=== PATIENT | male | born 1990 | race Caucasian/White ===

== ENCOUNTER 2019-04-10 08:45 | Emergency (ER) | payer SELFPAY ==
--- NOTE | 2019-04-10 09:03 | UC ---
Elbow Pain - HPI Summary HPI Summary: CHIEF COMPLAINT and HPI: This is a healthy 28-year-old male who fell yesterday on his left elbow on ice. Since then he has developed moderate pain in the left elbow, mostly near the olecranon and radial head and restricted movement due to pain. Pain is nonradiating. VITAL SIGNS & SaO2 REVIEWED. Within normal limits unless noted here. 161/86. NURSES NOTE REVIEWED."pt fell yesterday at work, and landed on his left elbow, no pain in the wrist, or hand but some in the forearm. no numbness or tingling." - History of Current Complaint Chief Complaint: UCUpperExtremity Stated Complaint: ELBOW INJURY Time Seen by Provider: 04/10/19 09:02 Pain Intensity: 7 - Allergies/Home Medications Allergies/Adverse Reactions: Allergies Allergy/AdvReac Type Severity Reaction Status Date / Time No Known Allergies Allergy Verified 04/10/19 09:00 Home Medications: Home Medications Acetaminophen [Pain Relief Extra Strength] 1,000 mg PO ONCE PRN 04/10/19 [ History Confirmed 04/10/19] PMH/Surg Hx/FS Hx/Imm Hx - Additional Past Medical History Additional PMH: PAST MEDICAL HISTORY- no significant past medical history. Patient has had variousorthopedic injuries. CHRONIC and RECURRENT HEALTH PROBLEM LIST REVIEWED. Information relevant to present complaint: noncontributory. VISIT HISTORY REVIEWED: noncontributory to present complaint. MEDICATIONS & ALLERGIES REVIEWED.no allergies. HYPERTENSION STATUS:the patient is not on any antihypertensive medications. 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 Previously Healthy: Yes - Surgical History Surgical History: None - Social History Alcohol Use: Occasionally Substance Use Type: None Smoking Status (MU): Former Smoker Review of Systems All Other Systems Reviewed And Are Negative: Yes Constitutional: Positive: Negative Respiratory: Positive: Negative Cardiovascular: Positive: Negative Gastrointestinal: Positive: Negative Musculoskeletal: Positive: Edema, Myalgia, Other: - 2.5 cm area of redness with an abrasion where he fell on his left elbow. Is Patient Immunocompromised?: No Physical Exam - Summary Physical Exam Summary: Appearance: The patient is well-appearing, is in no pain or distress, and is well-nourished. Eyes: Conjunctiva are clear. Pupils are equal and reactive to light and accommodation. Extra ocular muscle movement is intact. ENT: The hearing is grossly normal, the pharynx is normal, and the TMs are normal. There is no muffled or hoarse voice. No stridor. Neck: The neck is supple and there is no lymphadenopathy. Respiratory: The chest is non-tender to palpation and without crepitus. The lungs are clear, there are normal breath sounds, and there is no respiratory distress. No wheezes, rales or rhonchi. Cardiovascular: Heart sounds reveal a regular rate and rhythm. There are no clicks, rubs or murmurs. There are no carotid bruits or thrills. Circulation is grossly intact. Abdomen: The abdomen is soft and nontender. There is no organomegaly. Bowel sounds are present and within normal limits. No point tenderness at McBurneys point. No CVA tenderness. Musculoskeletal: Strength is intact. The patient moves all extremities but has restricted movement of his left elbow. He does not have full flexion, but he does have full extension. The area of the olecranon is mildly swollen. There is a 1 cm abrasion. There is some nearby erythema. There is no ascending cellulitis or lymphangitis. Neurological: The patient is alert. Motor and sensory are examination grossly intact. Speech is normal. Psychological: The patient displays age appropriate behavior, and is conversant. GCS=15. Skin: Negative for rashes. X RAY: INDICATION: Left elbow injury. TECHNIQUE: 4 views of the left elbow were obtained. FINDINGS: The bones are in normal alignment. No joint effusion or fracture is seen. Joint spaces appear maintained. IMPRESSION: NO EVIDENCE FOR FRACTURE. Triage Information Reviewed: Yes Vital Signs: Initial Vital Signs Temp 99.2 F 04/10/19 08:58 Pulse 90 04/10/19 08:58 Resp 16 04/10/19 08:58 BP 161/86 04/10/19 08:58 Pulse Ox 98 04/10/19 08:58 Elbow Pain Course/Dx - Course Course Of Treatment: This is a healthy 28-year-old male who fell yesterday on his left elbow on ice. Since then he has developed moderate pain in the left elbow, mostly near the olecranon and radial head and restricted movement due to pain. Pain is nonradiating.the area of the olecranon is swollen. There is a small abrasion and some reactive erythema. There is no ascending lymphangitis or cellulitis. X-ray is negative for fracture. My diagnosis is contusion of the left elbow. The patient knows to follow up for worsening infection, increased disability. I did tell the patient that if his pain continues for more than 10 days. He may need another x-ray to evaluate for hidden fracture. - Differential Dx/Diagnosis Differential Diagnosis/HQI/PQRI: Abrasion, Contusion, Fracture (Closed), Sprain , Strain Provider Diagnosis: Contusion Discharge ED - Sign-Out/Discharge Documenting (check all that apply): Patient Departure All imaging exams completed and their final reports reviewed: Yes - Discharge Plan Condition: Stable Disposition: HOME Patient Education Materials: Contusion in Adults (ED) Referrals: No Primary Care Phys,NOPCP [Primary Care Provider] - Additional Instructions: WE DISCUSSED: PLEASE SEEK CARE AT THE EMERGENCY DEPARTMENT IF SYMPTOMS WORSEN OR IF NEW SYMPTOMS DEVELOP. FOLLOW UP WITH YOUR PRIMARY CARE PHYSICIAN IF CONDITION CONTINUES BEYOND 3 DAYS WITHOUT IMPROVEMENT. YOUR DIAGNOSIS IS:left elbow contusion YOUR PRESCRIPTION RECOMMENDATION IS:none OTHER INSTRUCTIONS:. Clean wound morning and night with warm soap and water or dilute peroxide. Apply antibiotic ointment and a Band-Aid and an Landen covering. Watch for any signs of infection including redness, pain, swelling or temperature. Hypertension Discharge Instructions: Your blood pressure reading today was 161/86, and this was repeated and your blood pressure is 142/90 , indicating HYPERTENSION. Follow-up with your primary care provider within 4 weeks for blood pressure check and appropriate recommendations and treatment, as needed. FOR PAIN AND/OR SLEEP: For pain: Ibuprofen (Motrin and other brand names) 400-600mg PLUS acetaminophen (Tylenol and other brand names) 500mg - 1000mg every 8 hours. - Billing Disposition and Condition Condition: STABLE Disposition: Home
[2019-04-10] MEDS ORDERED: Tetan/Diph/Pertus SYR(Tdap)* 0.5 ML SYR(BOOSTRIX) use SYR contains LATEX IM ONE (10:14)
== END 2019-04-10 10:30 | disposition home or self-care (01) ==
LOC: UCEAST 08:45
DX: S50.02XA Contusion of left elbow, initial encounter (principal); Z23 Encounter for immunization; Z87.891 Personal history of nicotine dependence; W00.9XXA Unspecified fall due to ice and snow, initial encounter; Y92.9 Unspecified place or not applicable
CPT/HCPCS: 90471; 90715; 99202; G0463